=== PATIENT | male | born 1980 | race Caucasian/White ===

== ENCOUNTER 2017-03-30 12:44 | Emergency (ER) | payer BC, MEDICAID ==
[2017-03-30] MEDS ORDERED: Sodium Chloride 0.9% 10 ML Syringe FLUSH PRN (13:18)
[2017-03-30] MEDS ORDERED: Sodium Chloride 0.9% 1,000 ML IV SCH (13:30)
[2017-03-30] MEDS ORDERED: cefTRIAXone 1 GM Vial IM ONE (14:11)
[2017-03-30 14:25] VITALS: BP 130/78
[2017-03-30] MEDS ORDERED: cefTRIAXone 1 GM Vial ONE (14:28)
--- NOTE | 2017-04-05 12:26 | EDM.PDOC ---
ED HPI GENERAL MEDICAL PROBLEM - General Chief Complaint: General Stated Complaint: general Time Seen by Provider: 03/30/17 13:20 Source of Information: Reports: Patient History Limitations: Reports: No Limitations - History of Present Illness INITIAL COMMENTS - FREE TEXT/NARRATIVE: This is a 37yo M here for complaints of heat stroke. Patient states he was in the warm weather for a long time and working in hot conditions and feels dizzy and nauseated. Onset: Today Duration: Hour(s): Location: Reports: Generalized Severity: Mild Improves with: Reports: None Worsens with: Reports: None Associated Symptoms: Reports: Nausea/Vomiting Right Lower Tooth/Teeth Pain Score (Numeric/FACES): 4 - Related Data Allergies Allergy/AdvReac Type Severity Reaction Status Date / Time No Known Allergies Allergy Verified 03/30/17 13:23 Home Meds: Home Meds NK [No Known Home Meds] 03/30/17 [History] Past Medical History Musculoskeletal History: Reports: Back Pain, Chronic ED ROS GENERAL - Review of Systems Review Of Systems: ROS reveals no pertinent complaints other than HPI. ED EXAM, GENERAL - Physical Exam Exam: See Below Exam Limited By: No Limitations General Appearance: Alert, WD/WN, No Apparent Distress Eye Exam: Bilateral Eye: EOMI, PERRL Ears: Normal External Exam Nose: Normal Inspection Throat/Mouth: Normal Inspection Head: Atraumatic, Normocephalic Neck: Normal Inspection, Supple, Non-Tender Respiratory/Chest: No Respiratory Distress, Lungs Clear, Normal Breath Sounds Cardiovascular: Normal Peripheral Pulses, Regular Rate, Rhythm, No Edema Peripheral Pulses: 2+: Dorsalis Pedis (L), Dorsalis Pedis (R) GI/Abdominal: Normal Bowel Sounds Extremities: Normal Inspection Neurological: Alert, Oriented, CN II-XII Intact Psychiatric: Normal Affect, Normal Mood Skin Exam: Warm, Dry, Intact Course - Vital Signs Last Recorded V/S: Last Vital Signs Temp 37.0 C 03/30/17 14:18 Pulse 64 03/30/17 14:18 Resp BP 130/78 03/30/17 14:18 Pulse Ox 98 03/30/17 14:18 - Orders/Labs/Meds Labs: Laboratory Tests 03/30/17 03/30/17 Range/Units 13:25 13:25 WBC 13.9 H (4.0-11.0) K/uL RBC 5.16 (4.50-6.50) M/uL Hgb 14.7 (13.0-18.0) g/dL Hct 44.8 (40.0-54.0) % MCV 87 (76-96) fL MCH 28.5 (27.0-32.0) pg MCHC 32.8 (31.0-35.0) g/dL RDW 13.6 (11.0-16.0) % Plt Count 273 (150-400) K/uL MPV 10.7 H (6.0-10.0) fL Neut % (Auto) 70.7 H (45.0-70.0) % Lymph % (Auto) 14.4 L (20.0-40.0) % [place] % (Auto) 6.2 (3.0-10.0) % Eos % (Auto) 8.1 H (1.0-5.0) % Baso % (Auto) 0.6 H (0.0-0.5) % Neut # (Auto) 9.81 H (2.00-7.50) K/uL Lymph # (Auto) 2.00 (1.50-4.00) K/uL [place] # (Auto) 0.86 H (0.20-0.80) K/uL Eos # (Auto) 1.12 H (0.04-0.40) K/uL Baso # (Auto) 0.09 (0.02-0.10) K/uL Sodium 144 (136-145) mmol/L Potassium 4.0 (3.5-5.1) mmol/L Chloride 107 (98-107) mmol/L Carbon Dioxide 26.0 (21.0-32.0) mmol/L Anion Gap 15.0 (5.0-15.0) mmol/L BUN 13 (8-26) mg/dL Creatinine 0.79 (0.70-1.30) mg/dL Est Cr Clr Drug Dosing 157.18 mL/min Estimated GFR (MDRD) > 60 (>60) MLS/MIN BUN/Creatinine Ratio 16.5 (6-25) Glucose 116 H (74-100) mg/dL Calcium 9.4 (8.5-10.1) mg/dL Total Bilirubin 0.3 (0.0-1.0) mg/dL AST 16 (15-37) U/L ALT 29 (12-78) U/L Alkaline Phosphatase 66 (46-116) U/L Total Protein 8.9 H (6.4-8.2) g/dL Albumin 3.8 (3.4-5.0) g/dL Globulin 5.1 H (2.2-4.2) g/dL Albumin/Globulin Ratio 0.8 (0.8-2.0) TSH, Ultra Sensitive 1.321 (0.358-3.740) uIU/mL Meds: Medications Discontinued Medications Generic Name Dose Route Start Last Admin Trade Name Freq PRN Reason Stop Dose Admin Ceftriaxone Sodium 1 gm 03/30/17 14:11 03/30/17 14:29 Rocephin IM 03/30/17 14:12 1 gm ONETIME ONE Administration Ceftriaxone Sodium Confirm 03/30/17 14:28 Rocephin Administered 03/30/17 14:29 Dose 1 gm .ROUTE .STK-MED ONE Sodium Chloride 1,000 mls @ 999 mls/hr 03/30/17 13:30 03/30/17 13:48 Normal Saline IV 999 mls/hr ASDIRECTED GAVIN Administration Sodium Chloride 10 ml 03/30/17 13:18 03/30/17 13:35 Saline Flush FLUSH 10 ml ASDIRECTED PRN Administration Keep Vein Open Departure - Departure Time of Disposition: 14:30 Disposition: Home, Self-Care 01 Condition: Good Clinical Impression: Feels hot, Tooth pain Clinical Impression: (Ruled Out): Sinusitis - Discharge Information Instructions: Dental Care and Dentist Visits, Dental Abscess Referrals: PCP,None [Primary Care Provider] - Forms: ED Department Discharge Additional Instructions: Amoxicillin: 1 pill twice a day for 10 days to be picked up at the pharmacy. Follow up with the dentist to look at the teeth. - Problem List Review Problem List Initiated/Reviewed/Updated: Yes - Assessment/Plan Plan: Counseled on hydration, use of antibiotics and side effects and f/u if symptoms return. Discussed staying cool and supportive/conservative measures. Patient agrees with f/u as needed. Patient to f/u with dentist as well for tooth concerns.
== END 2017-03-30 14:40 | disposition home or self-care (01) ==
LOC: LB.ED 12:44
DX: K08.89 Other specified disorders of teeth and supporting structures (principal); T67.0XXA Heatstroke and sunstroke, initial encounter
CPT/HCPCS: 36415; 80053; 84443; 85025; 96360; 99284; J0696; J7040; J7050; 96372

== ENCOUNTER 2021-11-25 08:11 | Day surgery (SDC) | payer MEDICAID ==
[~2021-11-25 08:11] MED LIST: Lactated Ringers 1,000 ML IV SCH; Morphine 2 MG/ML SYRINGE IVPUSH PRN; Ondansetron 4 MG/2 ML SDV IVPUSH PRN
[2021-11-25] MEDS: Lactated Ringers 1,000 ML IV SCH (08:57)
[2021-11-25] MEDS ORDERED: fentaNYL 100 MCG/2 ML SDV ONE (11:00)
[2021-11-25] MEDS ORDERED: Propofol 1,000 MG/100 ML SDV ONE (11:00)
[2021-11-25] MEDS ORDERED: Ondansetron 4 MG/2 ML SDV ONE (11:00)
[2021-11-25] MEDS ORDERED: ePHEDrine 50 MG/ML SDV ONE (11:00)
[2021-11-25] MEDS ORDERED: Ketorolac 30 MG/ML SDV ONE (11:00)
[2021-11-25] MEDS ORDERED: Dexamethasone 4 MG/ML SDV ONE (11:00)
[2021-11-25] MEDS ORDERED: Midazolam 1 MG/ML 2 ML SDV ONE (11:00)
[2021-11-25 11:33] VITALS: BP 145/74; PULSE 71
[2021-11-25] MEDS: ceFAZolin 1 GM Vial ONE (11:35)
[2021-11-25] MEDS: Acetaminophen/HYDROcodone 325-5 MG Tab PO PRN (12:27)
[2021-11-25] MEDS: ceFAZolin 1 GM in Sodium Chloride 0.9% 50 ML IV ONE (15:47)
== END 2021-11-25 13:20 | disposition home or self-care (01) ==
LOC: LB.SDS 08:11
PROVIDERS: ATTEND Surgery
DX: K42.9 Umbilical hernia without obstruction or gangrene (principal); I10 Essential (primary) hypertension
CPT/HCPCS: A9270-GY; C1781; J0690; J1100; J1885; J2250; J2405; J2704; J3010; J3490; J7120